=== PATIENT | female | born 1950 | race Caucasian/White ===

== ENCOUNTER 2022-01-30 14:19 | Outpatient (CLI) | payer MEDICARE, BC | END 2022-01-30 14:20 | disposition home or self-care (01) | LOC: CSHMAMMO 14:19 | PROVIDERS: ATTEND Obstetrics & Gynecology | DX: Z12.31 Encounter for screening mammogram for malignant neoplasm of breast (principal); M85.851 Other specified disorders of bone density and structure, right thigh; Z91.89 Other specified personal risk factors, not elsewhere classified | CPT/HCPCS: 77063; 77067; 77080 ==

== ENCOUNTER 2023-07-31 04:55 | Observation (INO) | payer MEDICARE, BC ==
[2023-07-31] MEDS ORDERED: dilTIAZem 25 MG/5 ML VIAL ONE (05:08)
[2023-07-31 05:41] LABS: ALT (SGPT) 15 U/L (8-55); AST (SGOT) 21 U/L (5-34); Albumin 3.8 g/dL (3.4-4.8); Alkaline Phosphatase 49 U/L (40-110); Anion Gap 14 mmol/L (10-20); Bilirubin, Total 0.7 mg/dL (0.2-1.2); Calc. Creatinine Clearance 0 mL/min (70-130); Carbon Dioxide 24 mmol/L (23-31); Chloride 104 mmol/L (98-107); Estimated GFR 53; Globulin 2.3 g/dL (2.4-3.5); Glucose 106 mg/dL (83-110); Magnesium 2.3 mg/dL (1.6-2.6); Potassium 4.1 mmol/L (3.5-5.1); Protein, Total 6.1 g/dL (5.8-8.1); Sodium 138 mmol/L (136-145)
[2023-07-31 05:45] LABS: PTT 30.8 sec (22.0-33.0); Prothrombin Time 11.2 sec (9.5-12.1)
[2023-07-31 05:48] LABS: Troponin I Less than 0.010 ng/mL (< 0.028)
[2023-07-31 05:52] LABS: #Eosinphils 0.2 10x3/uL (0.0-0.5); #Monocytes 0.8 10x3/uL (0.0-1.1); #Neutrophils 3.3 10x3/uL (1.5-8.4); %Basophils 0.1 % (0.0-2.0); %Eosinophils 2.6 % (0.0-6.0); %Lymphocytes 37.9 % (18.0-47.0); %Monocytes 11.7 % (0.0-10.0); %Neutrophils 47.6 % (40.0-75.0); Hemoglobin 12.3 g/dL (12.0-15.5); Mean Corpuscular HGB CONC 32.4 g/dL (32.0-36.0); Mean Corpuscular Hemoglobin 27.4 pg (27.0-33.0); Mean Corpuscular Volume 84.6 fl (81.6-98.3); Platelet Count 275 10x3/uL (150-450); RBC Distribution Width 15.5 % (11.5-14.5); Red Blood Cell (RBC) Count 4.49 10x6/uL (3.90-5.03); White Blood Cell (WBC) Count 6.9 10x3/uL (3.5-10.5)
[2023-07-31] MEDS ORDERED: Guaifenesin DM 100-10/5 ML UDCUP PO PRN (05:52)
[2023-07-31] MEDS ORDERED: Calcium Carbonate 500 MG ChewTAB PO PRN (05:52)
[2023-07-31] MEDS ORDERED: Acetaminophen 325 MG TAB PO PRN (05:52)
[2023-07-31] MEDS ORDERED: Senokot S 8.6-50 MG TAB PO PRN (05:52)
[2023-07-31] MEDS ORDERED: Ondansetron PF 4 MG/2 ML Vial IVP PRN (05:52)
[2023-07-31 06:07] LABS: BUN (Urea Nitrogen) 20 mg/dL (9.8-20.1)
[2023-07-31 06:52] VITALS: BMI 36.1
[2023-07-31] MEDS ORDERED: Propafenone HCl 150 MG TAB PO SCH (09:00)
[2023-07-31] MEDS ORDERED: Sertraline 25 MG TAB PO SCH (09:00)
[2023-07-31] MEDS ORDERED: Apixaban 5 MG TAB PO SCH (09:00)
[2023-07-31] MEDS ORDERED: Metoprolol Tartrate 25 MG TAB PO SCH (09:00)
[2023-07-31 09:05] LABS: Troponin I Less than 0.010 ng/mL (< 0.028)
[2023-07-31 12:17] LABS: Troponin I Less than 0.010 ng/mL (< 0.028)
[2023-07-31] MEDS ORDERED: PROPOFOL 200 MG/20 ML VIAL ONE (13:00)
[2023-07-31] MEDS ORDERED: Lidocaine 1% (PF) 30 ML VIAL ONE (13:00)
[2023-07-31 17:09] VITALS: BP 118/58; TEMP 97.5
[2023-07-31] MEDS ORDERED: PROPAFENONE 225 MG PO SCH (21:00)
== END 2023-07-31 19:13 | disposition home or self-care (01) ==
LOC: CSHERS 04:55 → CSHTELE 06:41
PROVIDERS: ADMIT Student in an Organized Health Care Education/Training Program; ATTEND Student in an Organized Health Care Education/Training Program
PROC: 5A2204Z Restoration of Cardiac Rhythm, Single (ICD-10-PCS; principal; 2023-07-31)
DX: I48.91 Unspecified atrial fibrillation (principal); K21.9 Gastro-esophageal reflux disease without esophagitis; F41.9 Anxiety disorder, unspecified; Z90.89 Acquired absence of other organs; Z79.899 Other long term (current) drug therapy
CPT/HCPCS: 71045; 83735; 83880; 84484 ×2; 85610; 85730; 92960; 93005; 94760; G0378 ×2; 36415; 80053; 84443; 85025; J2001; J2704

== ENCOUNTER 2023-12-29 07:49 | Emergency (ER) | payer MEDICARE, BC ==
[2023-12-29] MEDS ORDERED: Etomidate 40 MG (20 mL) VIAL ONE (08:20)
[2023-12-29 10:17] LABS: #Basophils 0.03 10x3/uL (0.0-0.2); #Eosinphils 0.19 10x3/uL (0.0-0.5); %Basophils 0.6 % (0.0-2.0); %Eosinophils 3.8 % (0.0-6.0); %Lymphocytes 32.2 % (18.0-47.0); %Monocytes 15.8 % (0.0-10.0); %Neutrophils 47.4 % (40.0-75.0); Hematocrit 36.9 % (34.9-44.5); Hemoglobin 11.7 g/dL (12.0-15.5); Mean Corpuscular HGB CONC 31.7 g/dL (32.0-36.0); Mean Corpuscular Hemoglobin 26.1 pg (27.0-33.0); Mean Corpuscular Volume 82.4 fl (81.6-98.3); Mean Platelet Volume 10.5 fl (7.4-10.4); Platelet Count 290 10x3/uL (150-450); RBC Distribution Width 16.4 % (11.5-14.5); Red Blood Cell (RBC) Count 4.48 10x6/uL (3.90-5.03); White Blood Cell (WBC) Count 5.1 10x3/uL (3.5-10.5)
[2023-12-29 10:19] LABS: ALT (SGPT) 18 U/L (8-55); AST (SGOT) 28 U/L (5-34); Albumin 3.6 g/dL (3.4-4.8); Alkaline Phosphatase 53 U/L (40-110); Anion Gap 16 mmol/L (10-20); BUN (Urea Nitrogen) 15 mg/dL (9.8-20.1); Bilirubin, Total 0.7 mg/dL (0.2-1.2); Calc. Creatinine Clearance 0 mL/min (70-130); Calcium 8.9 mg/dL (7.8-10.44); Carbon Dioxide 22 mmol/L (23-31); Chloride 105 mmol/L (98-107); Estimated GFR 59; Globulin 2.6 g/dL (2.4-3.5); Glucose 99 mg/dL (83-110); Potassium 4.6 mmol/L (3.5-5.1); Protein, Total 6.2 g/dL (5.8-8.1); Sodium 138 mmol/L (136-145); Troponin I 0.023 ng/mL (< 0.028)
== END 2023-12-29 10:15 | disposition home or self-care (01) ==
LOC: CSHERS 07:49
DX: I48.91 Unspecified atrial fibrillation (principal); K21.9 Gastro-esophageal reflux disease without esophagitis; Z55.6 Problems related to health literacy; Z79.899 Other long term (current) drug therapy; Z79.01 Long term (current) use of anticoagulants
CPT/HCPCS: 71045; 80053; 84484; 85025; 92960; 93005; 93010; 99152

== ENCOUNTER 2024-03-05 12:25 | Outpatient (CLI) | payer MEDICARE, BC | END 2024-03-05 12:26 | disposition home or self-care (01) | LOC: CSHMAMMO 12:25 | PROVIDERS: ATTEND Obstetrics & Gynecology | DX: Z12.31 Encounter for screening mammogram for malignant neoplasm of breast (principal); Z91.89 Other specified personal risk factors, not elsewhere classified | CPT/HCPCS: 77063; 77067 ==

== ENCOUNTER 2024-06-11 08:40 | Emergency (ER) | payer MEDICARE, BC ==
[2024-06-11] MEDS ORDERED: Etomidate 40 MG (20 mL) VIAL ONE (09:17)
[2024-06-11 11:01] LABS: #Basophils 0.02 10x3/uL (0.0-0.2); #Eosinphils 0.06 10x3/uL (0.0-0.5); #Monocytes 0.99 10x3/uL (0.0-1.1); #Neutrophils 9.06 10x3/uL (1.5-8.4); %Basophils 0.2 % (0.0-2.0); %Eosinophils 0.5 % (0.0-6.0); %Lymphocytes 12.8 % (18.0-47.0); %Monocytes 8.5 % (0.0-10.0); %Neutrophils 77.6 % (40.0-75.0); Hematocrit 41.7 % (34.9-44.5); Hemoglobin 12.8 g/dL (12.0-15.5); Mean Corpuscular HGB CONC 30.7 g/dL (32.0-36.0); Mean Corpuscular Hemoglobin 24.3 pg (27.0-33.0); Mean Corpuscular Volume 79.3 fL (81.6-98.3); Mean Platelet Volume 10.1 fL (7.4-10.4); Platelet Count 315 10x3/uL (150-450); RBC Distribution Width 16.5 % (11.5-14.5); Red Blood Cell (RBC) Count 5.26 10x6/uL (3.90-5.03); White Blood Cell (WBC) Count 11.7 10x3/uL (3.5-10.5)
[2024-06-11 11:12] LABS: Anion Gap 16 mmol/L (10-20); BUN (Urea Nitrogen) 16 mg/dL (9.8-20.1); Calc. Creatinine Clearance 0 mL/min (70-130); Calcium 9.8 mg/dL (7.8-10.44); Carbon Dioxide 24 mmol/L (23-31); Chloride 102 mmol/L (98-107); Estimated GFR 51; Glucose 109 mg/dL (83-110); Potassium 4.7 mmol/L (3.5-5.1); Sodium 137 mmol/L (136-145)
[2024-06-11 11:17] LABS: Troponin I Less than 0.010 ng/mL (< 0.028)
== END 2024-06-11 11:40 | disposition home or self-care (01) ==
LOC: CSHERS 08:40
DX: I48.20 Chronic atrial fibrillation, unspecified (principal); K21.9 Gastro-esophageal reflux disease without esophagitis; Z79.01 Long term (current) use of anticoagulants; Z79.899 Other long term (current) drug therapy
CPT/HCPCS: 36415; 80048; 83880; 84484; 85025; 92960; 93005; 93010; 99152

== ENCOUNTER 2024-08-23 13:00 | Observation (INO) | payer MEDICARE, BC ==
[2024-08-23 15:44] LABS: #Basophils 0.03 10x3/uL (0.0-0.2); #Eosinophils 0.14 10x3/uL (0.0-0.5); #Monocytes 0.86 10x3/uL (0.0-1.1); #Neutrophils 4.26 10x3/uL (1.5-8.4); %Basophils 0.4 % (0.0-2.0); %Lymphocytes 24.9 % (18.0-47.0); %Monocytes 12.2 % (0.0-10.0); %Neutrophils 60.4 % (40.0-75.0); Hemoglobin 12.9 g/dL (12.0-15.5); Mean Corpuscular HGB CONC 32.3 g/dL (32.0-36.0); Mean Corpuscular Hemoglobin 25.5 pg (27.0-33.0); Mean Corpuscular Volume 79.2 fL (81.6-98.3); Mean Platelet Volume 11.2 fL (7.4-10.4); Platelet Count 355 10x3/uL (150-450); RBC Distribution Width 18.7 % (11.5-14.5); Red Blood Cell (RBC) Count 5.05 10x6/uL (3.90-5.03); White Blood Cell (WBC) Count 7.1 10x3/uL (3.5-10.5)
[2024-08-23 15:56] LABS: ALT (SGPT) 17 U/L (8-55); AST (SGOT) 25 U/L (5-34); Albumin 3.8 g/dL (3.4-4.8); Alkaline Phosphatase 58 U/L (40-110); Anion Gap 17 mmol/L (10-20); BUN (Urea Nitrogen) 15 mg/dL (9.8-20.1); Bilirubin, Total 0.7 mg/dL (0.2-1.2); Calc. Creatinine Clearance 0 mL/min (70-130); Calcium 9.5 mg/dL (7.8-10.44); Carbon Dioxide 24 mmol/L (23-31); Chloride 105 mmol/L (98-107); Estimated GFR 60; Globulin 2.4 g/dL (2.4-3.5); Glucose 90 mg/dL (83-110); Potassium 4.5 mmol/L (3.5-5.1); Protein, Total 6.2 g/dL (5.8-8.1); Sodium 141 mmol/L (136-145)
[2024-08-23] MEDS ORDERED: Etomidate 40 MG (20 mL) VIAL ONE (17:21)
[2024-08-23] MEDS ORDERED: fentaNYL 50 mcg/mL 1 mL Vial ONE (17:21)
[2024-08-23] MEDS ORDERED: dilTIAZem 25 MG/5 ML VIAL ONE (19:28)
[2024-08-23] MEDS ORDERED: Senokot S 8.6-50 MG TAB PO PRN (19:36)
[2024-08-23] MEDS ORDERED: traMADol HCl 50 MG TAB PO PRN (19:36)
[2024-08-23] MEDS ORDERED: Ondansetron PF 4 MG/2 ML Vial IVP PRN (19:36)
[2024-08-23] MEDS ORDERED: Acetaminophen 325 MG TAB PO PRN (19:36)
[2024-08-23] MEDS ORDERED: Calcium Carbonate 500 MG ChewTAB PO PRN (19:36)
[2024-08-23] MEDS ORDERED: Zolpidem Tartrate 5 MG TAB PO PRN (19:36)
[2024-08-23] MEDS ORDERED: dilTIAZem 125 MG in Sodium Chloride 0.9% 100 ML IVPB SCH (19:45)
[2024-08-23 21:56] VITALS: BMI 35.4
[2024-08-23] MEDS: dilTIAZem 30 MG TAB PO SCH (22:05)
[2024-08-23] MEDS: Sertraline 25 MG TAB PO SCH (22:05)
[2024-08-23] MEDS: Apixaban 5 MG TAB PO SCH (22:05)
[2024-08-23] MEDS: Flecainide 50 MG TAB PO SCH (22:06)
[2024-08-23] MEDS: dilTIAZem 25 MG/5 ML VIAL SLOW IVP PRN (23:17)
[2024-08-24 04:43] LABS: Anion Gap 12 mmol/L (10-20); BUN (Urea Nitrogen) 17 mg/dL (9.8-20.1); Calc. Creatinine Clearance 76 mL/min (70-130); Carbon Dioxide 26 mmol/L (23-31); Chloride 105 mmol/L (98-107); Estimated GFR 65; Glucose 101 mg/dL (83-110); Potassium 4.1 mmol/L (3.5-5.1); Sodium 139 mmol/L (136-145)
[2024-08-24] MEDS: dilTIAZem 30 MG TAB PO SCH (06:18)
[2024-08-24] MEDS: Digoxin 0.5 MG/2 ML AMP SLOW IVP SCH ×2 (06:41→09:54)
[2024-08-24] MEDS: Midodrine HCl 5 MG TAB PO SCH (06:41)
[2024-08-24] MEDS: Magnesium Oxide 400 MG TAB PO SCH (10:00)
[2024-08-24] MEDS: Pantoprazole DR 40 MG TAB PO SCH (10:00)
[2024-08-24] MEDS: Multivit, Therapeutic 1 TAB PO SCH (10:00)
[2024-08-24] MEDS: Flecainide 50 MG TAB PO SCH (16:35)
[2024-08-24 23:16] VITALS: BP 137/84; TEMP 98.2
== END 2024-08-24 23:10 | disposition short-term general hospital (02) ==
LOC: CSHERS 13:00 → CSHTELE 19:55
PROVIDERS: ADMIT Student in an Organized Health Care Education/Training Program; ATTEND Nurse Practitioner Acute Care
DX: I48.0 Paroxysmal atrial fibrillation (principal); I48.4 Atypical atrial flutter; I34.0 Nonrheumatic mitral (valve) insufficiency; F41.9 Anxiety disorder, unspecified; F32.A Depression, unspecified; K21.9 Gastro-esophageal reflux disease without esophagitis; G47.30 Sleep apnea, unspecified; R03.0 Elevated blood-pressure reading, without diagnosis of hypertension; Z87.59 Personal history of other complications of pregnancy, childbirth and the puerperium; Z96.651 Presence of right artificial knee joint; Z90.89 Acquired absence of other organs; Z79.01 Long term (current) use of anticoagulants; Z79.899 Other long term (current) drug therapy
CPT/HCPCS: 71045; 80048; 80053; 83735; 83880; 84443; 84484; 85025; 87426; 93005; 96375; 96376 ×2; G0378 ×3; J1160; J3010; 36415; 93010

== ENCOUNTER 2025-07-06 15:10 | Inpatient (IN) | payer MEDICARE, BC ==
[2025-07-06 17:14] VITALS: BMI 34.7
[2025-07-06] MEDS ORDERED: Senokot S 8.6-50 MG TAB PO PRN (17:36)
[2025-07-06] MEDS ORDERED: Melatonin 3 MG TAB PO PRN (17:36)
[2025-07-06] MEDS: Enoxaparin 100 MG (1 mL) SYRINGE SC SCH (20:58)
[2025-07-06] MEDS: Communication Order-Pharmacy FS ONE (21:04)
[2025-07-07] MEDS: Diltiazem HCl/D5W 125 MG in Premix 1 BAG IVPB SCH (06:39)
[2025-07-07 07:54] LABS: #Basophils Less than 0.03 10x3/uL (0.0-0.2); #Eosinophils 0.12 10x3/uL (0.0-0.5); #Monocytes 0.76 10x3/uL (0.0-1.1); #Neutrophils 3.15 10x3/uL (1.5-8.4); %Basophils 0.2 % (0.0-2.0); %Eosinophils 2.2 % (0.0-6.0); %Lymphocytes 26.9 % (18.0-47.0); %Monocytes 13.7 % (0.0-10.0); %Neutrophils 56.8 % (40.0-75.0); Hematocrit 42.1 % (34.9-44.5); Hemoglobin 14.3 g/dL (12.0-15.5); Mean Corpuscular Hemoglobin 31.6 pg (27.0-33.0); Mean Corpuscular Volume 93.1 fL (81.6-98.3); Platelet Count 277 10x3/uL (150-450); Red Blood Cell (RBC) Count 4.52 10x6/uL (3.90-5.03); White Blood Cell (WBC) Count 5.54 10x3/uL (3.5-10.5)
[2025-07-07 07:58] LABS: Anion Gap 12 mmol/L (10-20); BUN (Urea Nitrogen) 17 mg/dL (9.8-20.1); Calc. Creatinine Clearance 74 mL/min (70-130); Calcium 9.1 mg/dL (7.8-10.44); Carbon Dioxide 25 mmol/L (23-31); Chloride 105 mmol/L (98-107); Glucose 93 mg/dL (83-110); Potassium 4.0 mmol/L (3.5-5.1); Sodium 138 mmol/L (136-145)
[2025-07-07] MEDS: Pantoprazole 40 MG DR.TAB PO SCH (09:59)
[2025-07-07] MEDS: PNEUMOC 20-VAL CONJ-DIP CRM/PF 0.5 ML SYRINGE IM ONE (20:01)
[2025-07-07] MEDS: Sertraline 25 MG TAB PO SCH (20:45)
[2025-07-08 05:56] LABS: #Basophils 0.03 10x3/uL (0.0-0.2); #Eosinophils 0.13 10x3/uL (0.0-0.5); #Monocytes 0.82 10x3/uL (0.0-1.1); #Neutrophils 2.87 10x3/uL (1.5-8.4); %Basophils 0.5 % (0.0-2.0); %Eosinophils 2.4 % (0.0-6.0); %Lymphocytes 29.4 % (18.0-47.0); %Monocytes 15.0 % (0.0-10.0); %Neutrophils 52.5 % (40.0-75.0); Hematocrit 40.2 % (34.9-44.5); Hemoglobin 13.5 g/dL (12.0-15.5); Mean Corpuscular Hemoglobin 31.3 pg (27.0-33.0); Mean Corpuscular Volume 93.3 fL (81.6-98.3); Platelet Count 283 10x3/uL (150-450); Red Blood Cell (RBC) Count 4.31 10x6/uL (3.90-5.03); White Blood Cell (WBC) Count 5.47 10x3/uL (3.5-10.5)
[2025-07-08 06:15] LABS: Anion Gap 11 mmol/L (10-20); BUN (Urea Nitrogen) 21 mg/dL (9.8-20.1); Calc. Creatinine Clearance 69 mL/min (70-130); Calcium 9.0 mg/dL (7.8-10.44); Carbon Dioxide 27 mmol/L (23-31); Chloride 104 mmol/L (98-107); Glucose 91 mg/dL (83-110); Potassium 4.0 mmol/L (3.5-5.1); Sodium 138 mmol/L (136-145)
[2025-07-09 00:43] LABS: INR-International Normal Ratio 1.1; PTT 30.8 sec (22.0-33.0); Prothrombin Time 11.7 sec (9.5-12.1)
[2025-07-09 03:37] LABS: #Basophils Less than 0.03 10x3/uL (0.0-0.2); #Eosinophils 0.17 10x3/uL (0.0-0.5); #Monocytes 0.74 10x3/uL (0.0-1.1); #Neutrophils 3.16 10x3/uL (1.5-8.4); %Basophils 0.3 % (0.0-2.0); %Eosinophils 3.0 % (0.0-6.0); %Lymphocytes 28.8 % (18.0-47.0); %Monocytes 12.8 % (0.0-10.0); %Neutrophils 54.9 % (40.0-75.0); Hematocrit 39.4 % (34.9-44.5); Hemoglobin 13.1 g/dL (12.0-15.5); Mean Corpuscular Hemoglobin 30.8 pg (27.0-33.0); Mean Corpuscular Volume 92.5 fL (81.6-98.3); Platelet Count 241 10x3/uL (150-450); Red Blood Cell (RBC) Count 4.26 10x6/uL (3.90-5.03); White Blood Cell (WBC) Count 5.76 10x3/uL (3.5-10.5)
[2025-07-09 03:52] LABS: Anion Gap 11 mmol/L (10-20); BUN (Urea Nitrogen) 20 mg/dL (9.8-20.1); Calc. Creatinine Clearance 73 mL/min (70-130); Calcium 8.9 mg/dL (7.8-10.44); Carbon Dioxide 26 mmol/L (23-31); Chloride 105 mmol/L (98-107); Glucose 100 mg/dL (83-110); Potassium 4.0 mmol/L (3.5-5.1); Sodium 138 mmol/L (136-145)
[2025-07-09] MEDS ORDERED: CEFAZOLIN 1 GM VIAL ONE (07:00)
[2025-07-09] MEDS ORDERED: Lidocaine 1% (PF) 30 ML VIAL ONE (07:07)
[2025-07-09] MEDS ORDERED: Iopamidol 300 61% 100 ML VIAL FS ONE (09:09)
[2025-07-09] MEDS: Acetaminophen 325 MG TAB PO PRN (11:17)
[2025-07-09 16:25] VITALS: BP 140/75; TEMP 97.8
== END 2025-07-09 17:15 | disposition home or self-care (01) | DRG 243 ==
LOC: CSHTELE 16:44 → CSHICU 07-08 19:42 → CSHTELE 07-09 10:03
PROVIDERS: ADMIT Hospitalist; ATTEND Nurse Practitioner Acute Care
PROC: 0JH606Z Insertion of Pacemaker, Dual Chamber into Chest Subcutaneous Tissue and Fascia, Open Approach (ICD-10-PCS; principal; 2025-07-06)
PROC: 02H63JZ Insertion of Pacemaker Lead into Right Atrium, Percutaneous Approach (ICD-10-PCS; 2025-07-06)
PROC: 02HK3JZ Insertion of Pacemaker Lead into Right Ventricle, Percutaneous Approach (ICD-10-PCS; 2025-07-06)
PROC: 5A2204Z Restoration of Cardiac Rhythm, Single (ICD-10-PCS; 2025-07-07)
PROC: 3E03329 Introduction of Other Anti-infective into Peripheral Vein, Percutaneous Approach (ICD-10-PCS; 2025-07-09)
DX: I48.0 Paroxysmal atrial fibrillation (principal); F33.9 Major depressive disorder, recurrent, unspecified; F41.9 Anxiety disorder, unspecified; K21.9 Gastro-esophageal reflux disease without esophagitis; G47.33 Obstructive sleep apnea (adult) (pediatric); I34.0 Nonrheumatic mitral (valve) insufficiency; I48.4 Atypical atrial flutter; Z98.890 Other specified postprocedural states; I25.10 Atherosclerotic heart disease of native coronary artery without angina pectoris; I49.5 Sick sinus syndrome; Z79.899 Other long term (current) drug therapy; Z79.01 Long term (current) use of anticoagulants
CPT/HCPCS: 33208; 36415; 71045; 80048; 85025; 85610; 85730; 92960; 93005; 93010; 99152; 99153; C1785; C1898; J0690; J1580; J1650; J2003; J2250; J3010; Q9967